=== PATIENT | female | born 1995 | race African-American/Black ===

== ENCOUNTER 2023-11-25 11:59 | Emergency (ER) | payer BC, MEDICAID ==
[~2023-11-25] VITALS: Ht 165.1 cm; Wt 60.3 kg
[2023-11-25 12:10] VITALS: BP 151/106; TEMP 98.7; O2SAT 99
[2023-11-25] MEDS ORDERED: HYDR453.4 TP (12:20)
== END 2023-11-25 12:50 | disposition home or self-care (01) ==
LOC: ER 12:10
DX: L25.9 Unspecified contact dermatitis, unspecified cause (principal)